=== PATIENT | male | born 1965 | race Caucasian/White ===

== ENCOUNTER 2017-04-05 00:44 | Emergency (ER) | payer OTHER ==
[~2017-04-05] VITALS: Ht 167.6 cm; Wt 81.5 kg
[2017-04-05 00:47] VITALS: Ht 167.6 cm; Wt 81.5 kg
[2017-04-05] MEDS ORDERED: CEPH-443 PO (02:24)
[2017-04-05] MEDS ORDERED: IBUP400T22 PO (02:24)
--- NOTE | 2017-04-05 02:49 | ERD ---
ER Documentation Chief Complaint Date/Time DATE: 04/05/17 TIME: 02:43 Chief Complaint left index finger laceration HPI 51-year-old male presents here in emergency department for a skin avulsion wound in the left index finger after cutting food using a knife today. Patient complaining of pain throbbing pain 6/10 scale, is worse upon touching the area. Patient denies any tendon involvement or joint involvement. Patient did not take any medications to help with symptoms. Patient denies any numbness or tingling. ROS All systems reviewed and are negative except as per history of present illness. Medications Home Meds Active Scripts Cephalexin* (Keflex*) 500 Mg Capsule, 500 MG PO QID for 5 Days, CAP Prov:PRIMITIVO PERDOMO [employer] 04/05/17 Ibuprofen* (Motrin*) 400 Mg Tab, 400 MG PO Q6H Y for PAIN AND OR ELEVATED TEMP, #30 TAB Prov:PRIMITIVO PERDOMO NP 04/05/17 Allergies Allergies: Coded Allergies: No Known Allergy (Unverified , 04/05/17) PMhx/Soc Last tetanus immunization was one year ago. Medical and Surgical Hx: pt denies Surgical Hx Hx Miscellaneous Medical Probl: Yes (DM) Hx Alcohol Use: No Hx Substance Use: No Hx Tobacco Use: No Smoking Status: Never smoker FmHx Family History: No coronary disease, No diabetes, No other Physical Exam Vitals Vital Signs Date Time Temp Pulse Resp B/P Pulse Ox O2 Delivery O2 Flow Rate FiO2 04/05/17 00:47 97.8 70 20 152/90 100 Physical Exam GENERAL: The patient is well developed and appropriate for usual state of health, in no apparent distress. CHEST: Clear to auscultation bilaterally. There are no rales, wheezes or rhonchi. HEART: Regular rate and rhythm. No murmurs, clicks, rubs or gallops. No S3 or S4. ABDOMEN: Soft, nontender and nondistended. Good bowel sounds. No rebound or guarding. No gross peritonitis. No gross organomegaly or masses. No Waldron sign or McBurney point tenderness. BACK: No midline or flank tenderness. EXTREMITIES: Equal pulses bilaterally. There is no peripheral clubbing, cyanosis or edema. No focal swelling or erythema. Full range of motion. Grossly neurovascularly intact. NEURO: Alert and oriented. Cranial nerves 2-12 intact. Motor strength in all 4 extremities with 5/5 strength. Sensation grossly intact. Normal speech and gait. SKIN: 0.5 cm skin avulsion noted in the left index finger, bleeding controlled at this time. There is no apparent rash or petechia. The skin is warm and dry. HEMATOLOGIC AND LYMPHATIC: There is no evidence of excessive bruising or lymphedema. No gross cervical, axillary, or inguinal lymphadenopathy. Procedures/MDM Medical decision making: Patient's symptoms was likely is consistent with a skin avulsion. Unable to completely close the wound because of the skin avulsion. No symptoms of neurovascular compromise. No tendon involvement. No foreign body noted. Prescription was given for Keflex to prevent infection, ibuprofen for pain, patient was advised to do a wound check with primary care doctor in 2 days, apply pressure dressing on affected area, metal splint was also applied on affected area, good sensation and circulation after application. Departure Diagnosis: Primary Impression: Avulsion of skin of finger Encounter type: initial encounter Qualified Code: S61.209A - Avulsion of skin of finger, initial encounter Condition: Stable Patient Instructions: Skin Avulsion PRIMITIVO PERDOMO NP April 05, 2017 02:49
== END 2017-04-05 03:20 | disposition home or self-care (01) ==
LOC: FTE 00:44
DX: S61.201A Unspecified open wound of left index finger without damage to nail, initial encounter (principal); E11.9 Type 2 diabetes mellitus without complications; W26.0XXA Contact with knife, initial encounter; Y92.9 Unspecified place or not applicable